=== PATIENT | female | born 1950 | race Caucasian/White ===

== ENCOUNTER 2016-12-16 08:00 | Outpatient (CLI) | payer MEDICARE, OTHER | END 2016-12-16 23:59 | disposition home or self-care (01) | DX: E78.5 Hyperlipidemia, unspecified (principal) ==

== ENCOUNTER 2021-11-27 | Emergency (ER) | payer MEDICARE, OTHER ==
[2021-11-27 00:12] VITALS: BP 168/76
--- NOTE | 2021-11-27 00:16 | ED Physician Documentation ---
PD HPI SKIN - Stated complaint Stated Complaint: RASH ON LEGS,LEG PX - Chief complaint Chief Complaint: Ext Problem - History obtained from History obtained from: Patient - History of Present Illness Timing - onset: How many days ago (3) Timing - duration: Days (3) Pain level now: 1 Location: RLE, LLE Quality / character: Burning, Discolored, Raised. No: Itchy Associated symptoms: No: Fever, Myalgias, Joint pain, Headache, Facial swelling, Dyspnea, Abd pain, N/V/D, Urinary sx Contributing factors: Unknown Similar symptoms before: Has not had sx before Recently seen: Clinic - Additional information Additional information: c/o 3 days gradual onset, but progressive area of involvement, of BLE rash. This started 3 days ago with red/purple lesions on her ankles but had gradually spread up both legs with the most dense area of lesions on lower legs but some more widely scattered lesions have appeared on upper legs and anterior pelvic area, as well. The lesions do not itch. There is a mild burning sensation where the lesions are most dense. Last week she had several days of fatigue and generalized malaise without anything more specific regarding symptoms except upset stomach (per patient; she denies pain, nausea, can only describe as upset stomach and says the way you feel when you need to take Tums). The rash on her legs began as the other symptoms resolved with the exception of mild upset stomach, which persists. Denies h/o similar symptoms. No new exposures such as medications including recent immunizations. She is COVID vaccinated. Denies fever, chest pain, dyspnea. She was seen in outpatient setting for the rash, had blood tests performed but has not received results yet. Review of Systems Constitutional: reports: Reviewed and negative Cardiac: reports: Reviewed and negative Respiratory: reports: Reviewed and negative GI: denies: Abdominal Pain, Nausea, Vomiting, Constipation, Diarrhea, Hematemesis, Bloody / black stool Skin: reports: Rash Musculoskeletal: reports: Extremity pain (mild burning discomfort BLE). denies: Joint pain Neurologic: denies: Headache PD PAST MEDICAL HISTORY - Past Medical History Past Medical History: Yes Cardiovascular: High cholesterol Psych: Depression - Allergies Allergies/Adverse Reactions: Allergies Allergy/AdvReac Type Severity Reaction Status Date / Time No Known Drug Allergies Allergy Verified 11/27/21 00:12 PD ED PE NORMAL - Vitals Vital signs reviewed: Yes - General General: Alert and oriented X 3, No acute distress, Well developed/nourished - HEENT HEENT: Moist mucous membranes, Other (no enanthem) - Neck Neck: Supple, no meningeal sign - Cardiac Cardiac: RRR, No murmur - Respiratory Respiratory: No respiratory distress, Clear bilaterally - Abdomen Abdomen: Soft, Non tender - Extremities Extremities: No edema - Neuro Neuro: Alert and oriented X 3 PD ED PE EXPANDED - Derm Derm: Rash, Petecchiae, Purpura, Other (BLE: petechiae and purpura, nontender, do not cory. soles are spared. greatest lesion density over ankles and distal lower legs, with lesions on dorsum of feet, and more scattered lesions upper legs , pelvis and lower abdomen and bilateral lower flanks but not on back) Results - Vitals Vitals: Oxygen O2 Source Room air - Labs Labs: Microbiology 11/27/21 00:50 Urine Culture - Final Urine,Clean Catch Less Than 10,000 COLONIES/ML UROGENITAL MERT Laboratory Tests 11/27/21 11/27/21 11/27/21 00:50 01:12 01:12 WBC 8.5 RBC 4.45 Hgb 14.1 Hct 42.6 MCV 95.7 MCH 31.7 H MCHC 33.1 RDW 12.3 Plt Count 250 MPV 10.7 Neut # (Auto) 5.6 Lymph # (Auto) 1.9 [place] # (Auto) 0.6 Eos # (Auto) 0.3 Baso # (Auto) 0.0 Absolute Nucleated RBC 0.00 Nucleated RBC % 0.0 ESR PT 11.2 INR 1.0 APTT 32.5 Sodium Potassium Chloride Carbon Dioxide Anion Gap BUN Creatinine Estimated GFR (MDRD) Glucose Calcium Total Bilirubin AST ALT Alkaline Phosphatase C-Reactive Protein Total Protein Albumin Globulin Albumin/Globulin Ratio Lipase Urine Color YELLOW Urine Clarity CLEAR Urine pH 5.0 Ur Specific [place] 1.015 Urine Protein NEGATIVE Urine Glucose (UA) NEGATIVE Urine Ketones NEGATIVE Urine Occult Blood SMALL H Urine Nitrite NEGATIVE Urine Bilirubin NEGATIVE Urine Urobilinogen 0.2 (NORMAL) Ur Leukocyte Esterase SMALL H Urine RBC 0-5 Urine WBC 4-5 Ur Squamous Epith Cells FEW Squamous Urine Bacteria Rare Ur Microscopic Review INDICATED Urine Culture Comments INDICATED 11/27/21 11/27/21 01:12 01:12 WBC RBC Hgb Hct MCV MCH MCHC RDW Plt Count MPV Neut # (Auto) Lymph # (Auto) [place] # (Auto) Eos # (Auto) Baso # (Auto) Absolute Nucleated RBC Nucleated RBC % ESR 37 H PT INR APTT Sodium 138 Potassium 3.7 Chloride 102 Carbon Dioxide 26 Anion Gap 10.0 BUN 19 Creatinine 0.8 Estimated GFR (MDRD) 71 L Glucose 98 Calcium 9.0 Total Bilirubin 0.4 AST 17 ALT 18 Alkaline Phosphatase 74 C-Reactive Protein 3.8 H Total Protein 7.4 Albumin 4.0 Globulin 3.4 Albumin/Globulin Ratio 1.2 Lipase 58 H Urine Color Urine Clarity Urine pH Ur Specific [place] Urine Protein Urine Glucose (UA) Urine Ketones Urine Occult Blood Urine Nitrite Urine Bilirubin Urine Urobilinogen Ur Leukocyte Esterase Urine RBC Urine WBC Ur Squamous Epith Cells Urine Bacteria Ur Microscopic Review Urine Culture Comments PD MEDICAL DECISION MAKING - ED course Complexity details: reviewed results, re-evaluated patient, considered differential, d/w patient ED course: patient is well-appearing, rash is predominantly purpuric with some petechiae. Lack of other signs/symptoms suggests this is a vasculitis. Lack of other signs/symptoms (such as fever, dyspnea, chest pain, neurologic c/o), and lack of involvement of other areas would suggest against embolic process, TTP, meningococcemia/DIC. Her blood test results are reassuring, with normal CBC and minimal elevations in lipase, ESR, CRP. Presuming vasculitis at this time, might benefit from further testing (such as biopsy) to achieve specific diagnosis. Strong considerations at this time would include leukocytoclastic vasculitis, HSP/IgA vasculitis, small cutaneous vessel vasculitis. At this time, no specific treatment is indicated. Reviewed results and differential diagnosis with patient, instructed to return if worse, follow up with primary care provider. Departure - Departure Disposition: 01 Home, Self Care Clinical Impression: Vasculitis of skin Condition: Good Instructions: ED HSP Henoch Schonlein Purpura Follow-Up: Bernadette Edmonds MD [Primary Care Provider] - Comments: You are being provided discharge instructions for Henoch-Scholein purpura only because these best approximate your signs and appropriate precautions for returning to the emergency department. It is a possible diagnosis at this point, but at this time my diagnosis is CUTANEOUS SMALL VESSEL VASCULITIS. This, too, is not a final diagnosis. Your rash is highly suggestive of some form of vasculitis, which is a broader diagnosis of inflamed blood vessels which has many potential causes. Many of these causes have become highly unlikely simply based on lack of certain symptoms and/or findings on exam and tonight's testing. You might eventually need a biopsy of the lesions for a specific diagnosis. You need to follow up with your primary care provider as soon as can be arranged for reevaluation and possible further testing and/or referrals (at the discretion of your primary care provider). Discharge Date/Time: 11/27/21 02:48
[2021-11-27 01:17] LABS: BILIRUBIN,URINE NEGATIVE (NEGATIVE); GLUCOSE, URINE (UA) NEGATIVE (NEGATIVE); KETONES,URINE (UA) NEGATIVE (NEGATIVE); LEUKOCYTE ESTERASE, URINE SMALL (NEGATIVE); NITRITE,URINE NEGATIVE (NEGATIVE); OCCULT BLOOD,URINE SMALL (NEGATIVE); PROTEIN,URINE NEGATIVE (NEGATIVE); UROBILINOGEN,URINE 0.2 (NORMAL) E.U./dL (NORMAL)
[2021-11-27 01:24] LABS: BASOPHILS % (AUTO) 0.5 %; EOSINOPHILS # (AUTO) 0.3 10^3/uL (0.0-0.7); EOSINOPHILS % (AUTO) 3.4 %; HCT - HEMATOCRIT 42.6 % (37.0-47.0); HGB - HEMOGLOBIN 14.1 g/dL (12.0-16.0); LYMPHOCYTES # (AUTO) 1.9 10^3/uL (1.5-3.5); MEAN CORPUSCULAR HEMOGLOBIN 31.7 pg (27.0-31.0); MEAN CORPUSCULAR HGB CONC 33.1 g/dL (32.0-36.0); MEAN CORPUSCULAR VOLUME 95.7 fL (81.0-99.0); MEAN PLATELET VOLUME 10.7 fL (7.9-10.8); MONOCYTES # (AUTO) 0.6 10^3/uL (0.0-1.0); MONOCYTES % (AUTO) 7.3 %; NEUTROPHILS # (AUTO) 5.6 10^3/uL (1.5-6.6); NEUTROPHILS % (AUTO) 65.7 %; PLT - PLATELET COUNT 250 10^3/uL (130-450); RED BLOOD COUNT 4.45 10^6/uL (4.20-5.40); RED CELL DISTRIBUTION WIDTH 12.3 % (12.0-15.0); WHITE BLOOD COUNT 8.5 x10^3/uL (4.8-10.8)
[2021-11-27 01:26] LABS: PT - PROTHROMBIN TIME 11.2 secs (9.9-12.6)
[2021-11-27 01:28] LABS: BACTERIA,URINE Rare /HPF (None Seen); CLARITY,URINE CLEAR (CLEAR); RBC,URINE 0-5 /HPF (0-5); SQUAMOUS EPITHELIAL CELL,UR FEW Squamous (<= Few)
[2021-11-27 01:33] LABS: PARTIAL THROMBOPLASTIN TIME 32.5 secs (24.9-33.3)
[2021-11-27 01:38] LABS: ALBUMIN/GLOBULIN RATIO 1.2 (1.0-2.2); BILIRUBIN,TOTAL 0.4 mg/dL (0.2-1.0); CREATININE 0.8 mg/dL (0.4-1.0); CRP - C-REACTIVE PROTEIN 3.8 mg/dL (0-1.0); POTASSIUM 3.7 mmol/L (3.5-5.0); TOTAL PROTEIN 7.4 g/dL (6.7-8.2)
== END 2021-11-27 02:48 | disposition home or self-care (01) ==
LOC: ED
DX: L95.9 Vasculitis limited to the skin, unspecified (principal)
CPT/HCPCS: 36415; 80053; 81001; 81003; 83690; 85025; 85610; 85651; 85730; 86140; 87086; 99282; 99283

== ENCOUNTER 2022-12-26 09:20 | Outpatient (CLI) | payer MEDICARE, OTHER ==
[2022-12-26 12:51] LABS: BASOPHILS % (AUTO) 0.6 %; EOSINOPHILS # (AUTO) 0.4 10^3/uL (0.0-0.7); EOSINOPHILS % (AUTO) 6.7 %; HCT - HEMATOCRIT 42.3 % (37.0-47.0); HGB - HEMOGLOBIN 13.9 g/dL (12.0-16.0); LYMPHOCYTES # (AUTO) 1.4 10^3/uL (1.5-3.5); LYMPHOCYTES % (AUTO) 26.2 %; MEAN CORPUSCULAR HEMOGLOBIN 31.6 pg (27.0-31.0); MEAN CORPUSCULAR HGB CONC 32.9 g/dL (32.0-36.0); MEAN CORPUSCULAR VOLUME 96.1 fL (81.0-99.0); MEAN PLATELET VOLUME 12.7 fL (7.9-10.8); MONOCYTES # (AUTO) 0.5 10^3/uL (0.0-1.0); MONOCYTES % (AUTO) 10.1 %; NEUTROPHILS # (AUTO) 2.9 10^3/uL (1.5-6.6); NEUTROPHILS % (AUTO) 56.2 %; PLT - PLATELET COUNT 254 10^3/uL (130-450); RED CELL DISTRIBUTION WIDTH 13.2 % (12.0-15.0); WHITE BLOOD COUNT 5.2 x10^3/uL (4.8-10.8)
[2022-12-26 13:32] LABS: ALBUMIN 3.8 g/dL (3.2-5.5); ALKALINE PHOSPHATASE 70 IU/L (42-121); ALT ALANINE AMINOTRANSFERASE 15 IU/L (10-60); AST ASPARTATE AMINOTRANSFERASE 15 IU/L (10-42); BUN - BLOOD UREA NITROGEN 17 mg/dL (6-20); CALCIUM 9.3 mg/dL (8.5-10.3); CARBON DIOXIDE - CO2 23 mmol/L (21-32); CHLORIDE 108 mmol/L (101-111); CREATININE 0.8 mg/dL (0.4-1.0); GFR - MDRD 70 (>89); GLUCOSE 94 mg/dL (70-100); POTASSIUM 3.9 mmol/L (3.5-5.0); SODIUM 141 mmol/L (135-145); TOTAL PROTEIN 7.5 g/dL (6.7-8.2)
[2022-12-26 13:35] LABS: BILIRUBIN,DIRECT < 0.1 mg/dL (0.1-0.5)
== END 2022-12-26 09:21 | disposition home or self-care (01) ==
LOC: LAB.N 09:20
PROVIDERS: ATTEND Dermatology
DX: Z79.899 Other long term (current) drug therapy (principal)
CPT/HCPCS: 36415; 80053; 80076; 85025

== ENCOUNTER 2023-01-24 09:58 | Outpatient (CLI) | payer MEDICARE, OTHER ==
[2023-01-24 12:40] LABS: BASOPHILS % (AUTO) 0.8 %; EOSINOPHILS # (AUTO) 0.2 10^3/uL (0.0-0.7); HCT - HEMATOCRIT 43.1 % (37.0-47.0); HGB - HEMOGLOBIN 14.4 g/dL (12.0-16.0); LYMPHOCYTES # (AUTO) 1.5 10^3/uL (1.5-3.5); LYMPHOCYTES % (AUTO) 29.5 %; MEAN CORPUSCULAR HEMOGLOBIN 31.6 pg (27.0-31.0); MEAN CORPUSCULAR HGB CONC 33.4 g/dL (32.0-36.0); MEAN CORPUSCULAR VOLUME 94.7 fL (81.0-99.0); MEAN PLATELET VOLUME 12.9 fL (7.9-10.8); MONOCYTES # (AUTO) 0.4 10^3/uL (0.0-1.0); MONOCYTES % (AUTO) 8.2 %; NEUTROPHILS # (AUTO) 2.9 10^3/uL (1.5-6.6); NEUTROPHILS % (AUTO) 57.3 %; PLT - PLATELET COUNT 214 10^3/uL (130-450); RED BLOOD COUNT 4.55 10^6/uL (4.20-5.40); RED CELL DISTRIBUTION WIDTH 12.5 % (12.0-15.0)
[2023-01-24 12:53] LABS: ALBUMIN/GLOBULIN RATIO 1.1 (1.0-2.2); ALKALINE PHOSPHATASE 63 IU/L (42-121); ALT ALANINE AMINOTRANSFERASE 17 IU/L (10-60); AST ASPARTATE AMINOTRANSFERASE 18 IU/L (10-42); BUN - BLOOD UREA NITROGEN 17 mg/dL (6-20); CALCIUM 9.3 mg/dL (8.5-10.3); CARBON DIOXIDE - CO2 25 mmol/L (21-32); CHLORIDE 107 mmol/L (101-111); CHOL/HDL RATIO 2.8 (<4.4); CHOLESTEROL 145 mg/dL; CREATININE 0.8 mg/dL (0.4-1.0); GFR - MDRD 70 (>89); GLUCOSE 97 mg/dL (70-100); HDL CHOLESTEROL 52 mg/dL; LDL CHOLESTEROL,CALCULATED 77 mg/dL; LDL/HDL RATIO 1.5 (<4.4); POTASSIUM 3.9 mmol/L (3.5-5.0); SODIUM 140 mmol/L (135-145); TOTAL PROTEIN 7.7 g/dL (6.7-8.2); TRIGLYCERIDES 80 mg/dL; VLDL CHOLESTEROL 16 mg/dL
== END 2023-01-24 09:59 | disposition home or self-care (01) ==
LOC: LAB.N 09:58
PROVIDERS: ATTEND Family Medicine
DX: E78.5 Hyperlipidemia, unspecified (principal); R03.0 Elevated blood-pressure reading, without diagnosis of hypertension; M81.0 Age-related osteoporosis without current pathological fracture
CPT/HCPCS: 36415; 80053; 80061; 82306; 83721; 84443; 85025

== ENCOUNTER 2023-05-10 13:10 | Outpatient (CLI) | payer MEDICARE, OTHER ==
--- NOTE | 2023-05-10 14:02 | SLEEP CARE CONSULTATION ---
Information from patient questionnaire entered by Maranda Hatch. I have reviewed and concur with the information entered by Maranda Hatch. This document represents the service I personally performed and the decisions made by me, Hilda De Dios ARNP. History of Present Illness Service Date and Time: 05/10/2023 1310 Reason for Visit: New patient, sleep apnea on CPAP therapy Chief Complaint: reports: Other (TRANSFER FROM [place] NEEDING SUPPLIES) Date of Onset: 20YRS Usual bedtime: 11 Time it takes to fall asleep: OVER AN HR Snores at night: No Observed to quit breathing while asleep: Yes Sleeps alone due to snoring: No Number of times waking at night: 4-11 Reasons for waking at night: reports: Pain, Other (ARTHRITIS/ BACK PAIN) Toss, Turn, or Twitch while sleeping: Yes Recalls having dreams: Yes Feels refreshed in the morning: No Morning headache: No Sleepy or fatigued during the day: Yes Ever fallen asleep while driving: No Takes day naps: Yes Dreams during day naps: No Prior sleep studies: Yes ([place] 20YRS AGO) Additional HPI information: ADRIANO TORREZ was previously diagnosed to have mild, AHI 13.8, obstructive sleep apnea-hypopnea syndrome as seen in a sleep study dated 05/23/2018 through [facility] and comes in today to establish care for CPAP therapy. - Parasomnia Symptoms Ever been unable to move upon waking from sleep: No Walks in sleep: No Talks in sleep: No Ever acted out dreams in sleep: No Ever felt weak in the knees when startled or emotional: No Bothered by creepy, crawly, restless sensations in legs: No Problems with memory or concentration: No CPAP Compliance Data - Data Reviewed with Patient Average duration of nightly device use: 10 hours 59 mins Compliance rate %: 98.9 (90/90 days used) Current pressure setting (cmH2O): 7-12 Average residual AHI: 0.9 Central apnea: 0.1 Obstructive apnea: 0.1 Hypopnea: 0.7 Average large leak: 2 minutes 17 secs Compliance data discussion: She has a recertified Dreamstation CPAP. She gets her supplies from [facility]. She is using a Alfred FX nasal pillows mask. She changes her cushion every 2-3 months. Subjective Patient concerns: denies: aerophagia, mask discomfort, air blowing in eyes, mask leak noise, condensation in mask/hose, nasal congestion, dry mouth, nose, throat, epistaxis Observed to snore while using device: No Current pressure setting perceived as: comfortable On therapy, patient: reports: sleeping better, awakening more refreshed, being more awake and alert during the day, more rested overall. denies: drowsiness while driving Initial [place] Sleepiness Scale score: 6 (05/10/23) Past Medical History Past Medical History: reports: Arthritis, Depression, Other (Leukocytoclastic vasculitis; Scoliosis) Social History The patient's occupation is a RE. Patient is and lives in [place]. Have you smoked in the past 12 months: No Alcohol use: Yes Alcohol amount and frequency: 1 GLASS 3X YRS WHITE WINE Caffeine use: Yes Caffeine amount and frequency: SMALL CUP MILD COFFEE 1 IN MORNING Family History Family history of sleep disordered breathing: Yes (son, not treated, mild) Allergies and Home Medications Known drug allergies: No Drug allergies reviewed: Yes Home medication list reviewed: Yes Allergy and home medication list: Allergies No Known Drug Allergies Allergy (Verified 05/09/23 22:01) Medications: Atorvastatin 5 mg, 1/2 pill, daily Sertraline 150 mg daily Bupropion 100 mg daily Flonase, prn allergies Review of Systems Weight loss over past 5 years: 12 Cardiovascular: denies: high blood pressure Respiratory: reports: shortness of breath Gastrointestinal: denies: heartburn Urinary: reports: frequency Neurological: denies: headaches Psychiatric: reports: depression Ear/Nose/Throat: reports: nasal congestion, sinus problems Musculoskeletal: reports: joint pain, back pain (Scoliosis) Immunologic: reports: sneezing, allergies to food or environment Physical Exam Vital signs obtained and entered by: Hilda Marquez NP Blood Pressure: 113/65 Cuff size: wrist (left) Heart Rate: 70 O2 Saturation: 96 Height: 5 ft 2 in Weight: 138 lb 9.6 oz Body Mass Index: 25.3 BMI Classification: Overweight Heart: regular rate and rhythm Lungs: clear bilaterally Impression and Plan 1. Obstructive Sleep Apnea-Hypopnea Syndrome, mild, with good treatment compliance and good apnea control. On CPAP therapy, the patient has better sleep quality and is more rested overall. Patient has a re-certified Dreamstation. She is with [employer] for her supplies and is in need of ordering some supplies. She is using a Alfred FX nasal pillows mask. Patient has significant improvement of their sleep apnea and is satisfied with current CPAP therapy. Patient denies problems with oral dryness, nasal congestion, epistaxis, skin irritation or aerophagia. Patient's apnea severity and rationale for treatment to reduce apnea, improve sleep quality and reduce cardiovascular and cerebrovascular events was reviewed. I also reviewed the benefit of consistent device use of CPAP for depression. 2. Overweight, unspecified. Currently patients BMI is 25.3. Obesity increases the risk of apnea, CPAP pressure requirements and overall health risks especially cardiovascular and diabetes. Thus patient is advised to lose weight. * Continue auto CPAP pressure at 6-12 cmH2O * Update supply prescription * Notify me if snoring with mask or feeling that the pressure is too much or too little * Attempt to lose and maintain a healthy weight * Call this office if any problems using CPAP * Return for follow up in 1 year, or sooner if concerns arise Counseling Topics: Spare mask, Weight loss health impact Visit Type: In Office Time Spent with Patient (minutes): 35 Provider Statement: I spent 100% of the Face to Face Visit with the patient with greater than 50% spent counseling the patient and coordination of care.
[2023-05-10 14:17] VITALS: BP 113/65
== END 2023-05-10 13:11 | disposition home or self-care (01) ==
LOC: SC 13:10
PROVIDERS: ATTEND Nurse Practitioner Family
DX: G47.33 Obstructive sleep apnea (adult) (pediatric) (principal); E66.3 Overweight; Z68.25 Body mass index [BMI] 25.0-25.9, adult
CPT/HCPCS: 99203; G0463; 99212

== ENCOUNTER 2023-11-15 11:11 | Outpatient (CLI) | payer MEDICARE, OTHER ==
[2023-11-15 18:13] LABS: ALBUMIN 4.3 g/dL (3.2-5.5); ALBUMIN/GLOBULIN RATIO 1.4 (1.0-2.2); ALKALINE PHOSPHATASE 68 IU/L (42-121); ALT ALANINE AMINOTRANSFERASE 14 IU/L (10-60); AST ASPARTATE AMINOTRANSFERASE 17 IU/L (10-42); BILIRUBIN,TOTAL 0.7 mg/dL (0.2-1.0); BUN - BLOOD UREA NITROGEN 14 mg/dL (6-20); CALCIUM 9.6 mg/dL (8.5-10.3); CARBON DIOXIDE - CO2 28 mmol/L (21-32); CHLORIDE 108 mmol/L (101-111); CHOL/HDL RATIO 2.7 (<4.4); CHOLESTEROL 143 mg/dL; CREATININE 0.7 mg/dL (0.6-1.3); GFR - MDRD 82 (>89); GLUCOSE 85 mg/dL (74-104); HDL CHOLESTEROL 53 mg/dL; LDL CHOLESTEROL,CALCULATED 73 mg/dL; LDL/HDL RATIO 1.4 (<4.4); POTASSIUM 4.4 mmol/L (3.5-4.5); SODIUM 142 mmol/L (135-145); TOTAL PROTEIN 7.3 g/dL (6.4-8.9); TRIGLYCERIDES 83 mg/dL (48-352); VLDL CHOLESTEROL 17 mg/dL
== END 2023-11-15 11:12 | disposition home or self-care (01) ==
LOC: LAB.N 11:11
PROVIDERS: ATTEND Family Medicine
DX: E78.5 Hyperlipidemia, unspecified (principal)
CPT/HCPCS: 36415; 80053; 80061; 83721

== ENCOUNTER 2024-05-21 14:54 | Outpatient (CLI) | payer MEDICARE, OTHER ==
--- NOTE | 2024-05-21 15:52 | Sleep Patient Instructions ---
Sleep Center Visit Summary - Patient Visit Information Reason for Visit: Annual follow-up - Patient Instructions Additional Instructions: You will continue with CPAP therapy with pressure set at 7-12 cmH2O. A supply prescription will be updated with your DME. I have added an order to update your PAP machine. Please call the office to schedule a compliance follow up once you get your new device. Please follow up with the sleep care office one month after obtaining litzy mackey. - Clinic Information Contact: [facility] [address] [place] [address] [email or web address] T: [phone]
--- NOTE | 2024-05-21 15:56 | SLEEP CARE CONSULTATION ---
Information from patient questionnaire entered by Maranda Hatch. I have reviewed and concur with the information entered by Maranda Hatch. This document represents the service I personally performed and the decisions made by , Hilda De Dios ARNP. History of Present Illness Service Date and Time: 05/21/2024 1454 Previous diagnosis: Mild, Obstructive Sleep Apnea-Hypopnea Syndrome AHI: 13.8 (on 05/23/2018) Reason for follow up: annual (LAST SEEN 04/2023) Equipment type: CPAP (Dreamstation-recertified; s/u 04/28/2021) Equipment obtained from: [employer] (getting supplies) Mask style: Nasal pillows Backup mask available: Yes Last cushion change: last week Prior sleep studies: Yes ([place] YRS AGO) Year and Where: 05/23/2018 [facility] additional information: ADRIANO TORREZ was diagnosed to have mild, AHI 13.8, obstructive sleep apnea- hypopnea syndrome and returned today for CPAP therapy annual follow-up. Sleep Study - Results Prior sleep studies: Yes ([place] 20YRS AGO) CPAP Compliance Data - Data Reviewed with Patient Average duration of nightly device use: 11 HRS 14 MINS 14 SECS Compliance rate %: 99.7 (05/18/23-05/16/24; 365/365 days used) Current pressure setting (cmH2O): 7-12 Average residual AHI: 0.8 Central apnea: 0.1 Obstructive apnea: 0.1 Average large leak: 3 mins 19 secs Subjective Patient concerns: reports: other (gasket betw machine and tank damaged/worn out- closure on tank damaged or worn out). denies: aerophagia, mask discomfort, air blowing in eyes, mask leak noise, condensation in mask/hose, nasal congestion, dry mouth, nose, throat, epistaxis Observed to snore while using device: No Current pressure setting perceived as: comfortable On therapy, patient: reports: sleeping better, awakening more refreshed, being more awake and alert during the day, more rested overall. denies: drowsiness while driving Initial [place] Sleepiness Scale score: 6 (05/10/23) Current [place] Sleepiness Scale score: 6 Allergies and Home Medications Known drug allergies: No Drug allergies reviewed: Yes Home medication list reviewed: Yes (no changes) Allergy and home medication list: Allergies No Known Drug Allergies Allergy (Verified 05/17/24 11:01) Review of Systems Review of systems same as previous: No (Cataract surgery both eyes) Physical Exam Vital signs obtained and entered by: HILDA MCPHERSON Blood Pressure: 112/60 Cuff size: regular (right arm) Heart Rate: 58 O2 Saturation: 97 Height: 5 ft 2 in Weight: 137 lb 3.2 oz Weight change since last visit: 1 lb loss Body Mass Index: 25.0 BMI Classification: Overweight Impression and Plan 1. Obstructive Sleep Apnea-Hypopnea Syndrome, mild, with good treatment compliance and good apnea control. On CPAP therapy, the patient has better sleep quality and is more rested overall. Patient states that her DreamStation that was replaced by the recall is making loud noises. She thinks it is the seal between the water chamber and the machine that whistles during the night and wakes her up. She also says trying to put the lid back on the water chamber does not seal well and she has to make sure it is down or it will also leak and cause leaking noises. Thus, we will try to get the CPAP updated. A DWO prescription will be made. Compliance guidelines for new device and follow up discussed. Patient's apnea severity and rationale for treatment to reduce apnea, improve sleep quality and reduce cardiovascular and cerebrovascular events was reviewed. I also reviewed the benefit of consistent device use of CPAP for depression. 2. Overweight, minimal. Currently patients BMI is 25. Obesity increases the risk of apnea, CPAP pressure requirements and overall health risks especially cardiovascular and diabetes. Thus patient is advised to maintain a healthy weight. * Continue auto CPAP pressure at 7-12 cmH2O * Update machine * Update supply prescription * Notify me if snoring with mask or feeling that the pressure is too much or too little * Call this office if any problems using CPAP * Return for follow up in 12 months, or sooner if concerns arise Counseling Topics: Spare mask, Weight control Visit Type: In Office Time Spent with Patient (minutes): 23 Provider Statement: I spent 100% of the Face to Face Visit with the patient with greater than 50% spent counseling the patient and coordination of care.
[2024-05-21 15:59] VITALS: BP 112/60; O2SAT 97
== END 2024-05-21 14:55 | disposition home or self-care (01) ==
LOC: SC 14:54
PROVIDERS: ATTEND Nurse Practitioner Family
DX: G47.33 Obstructive sleep apnea (adult) (pediatric) (principal); E66.3 Overweight; Z68.25 Body mass index [BMI] 25.0-25.9, adult
CPT/HCPCS: 99213; G0463; 99212

== ENCOUNTER 2024-06-27 10:43 | Outpatient (CLI) | payer MEDICARE, OTHER ==
[2024-06-27 18:14] LABS: ALBUMIN 4.3 g/dL (3.2-5.5); ALBUMIN/GLOBULIN RATIO 1.5 (1.0-2.2); ALKALINE PHOSPHATASE 47 IU/L (42-121); ALT ALANINE AMINOTRANSFERASE 14 IU/L (10-60); AST ASPARTATE AMINOTRANSFERASE 17 IU/L (10-42); BILIRUBIN,TOTAL 0.8 mg/dL (0.2-1.0); BUN - BLOOD UREA NITROGEN 12 mg/dL (6-20); CALCIUM 9.4 mg/dL (8.5-10.3); CARBON DIOXIDE - CO2 25 mmol/L (21-32); CHLORIDE 108 mmol/L (101-111); CHOL/HDL RATIO 3.2 (<4.4); CHOLESTEROL 183 mg/dL; CREATININE 0.8 mg/dL (0.6-1.3); GFR - MDRD 70 (>89); GLUCOSE 86 mg/dL (74-104); HDL CHOLESTEROL 57 mg/dL; LDL CHOLESTEROL,CALCULATED 107 mg/dL; LDL/HDL RATIO 1.9 (<4.4); POTASSIUM 4.1 mmol/L (3.5-4.5); SODIUM 140 mmol/L (135-145); TOTAL PROTEIN 7.2 g/dL (6.4-8.9); TRIGLYCERIDES 93 mg/dL; VLDL CHOLESTEROL 19 mg/dL
[2024-06-27 18:22] LABS: THYROID STIMULATING HORMONE 2.17 uIU/mL (0.34-5.60)
[2024-06-27 18:25] LABS: BASOPHILS % (AUTO) 0.9 %; EOSINOPHILS # (AUTO) 0.2 10^3/uL (0.0-0.7); EOSINOPHILS % (AUTO) 4.1 %; HCT - HEMATOCRIT 43.5 % (37.0-47.0); HGB - HEMOGLOBIN 13.9 g/dL (12.0-16.0); LYMPHOCYTES # (AUTO) 1.7 10^3/uL (1.5-3.5); LYMPHOCYTES % (AUTO) 36.2 %; MEAN CORPUSCULAR HEMOGLOBIN 31.3 pg (27.0-31.0); MONOCYTES # (AUTO) 0.4 10^3/uL (0.0-1.0); MONOCYTES % (AUTO) 8.5 %; NEUTROPHILS # (AUTO) 2.3 10^3/uL (1.5-6.6); NEUTROPHILS % (AUTO) 50.1 %; PLT - PLATELET COUNT 229 10^3/uL (130-450); RED BLOOD COUNT 4.44 10^6/uL (4.20-5.40); RED CELL DISTRIBUTION WIDTH 13.2 % (12.0-15.0); WHITE BLOOD COUNT 4.6 x10^3/uL (4.8-10.8)
== END 2024-06-27 10:44 | disposition home or self-care (01) ==
LOC: LAB.N 10:43
PROVIDERS: ATTEND Family Medicine
DX: E78.00 Pure hypercholesterolemia, unspecified (principal); D70.9 Neutropenia, unspecified
CPT/HCPCS: 36415; 80053; 80061; 83721; 84443; 85025